=== PATIENT | female | born 1960 | race Caucasian/White ===

== ENCOUNTER 2021-08-08 15:08 | Emergency (ER) | payer BC, SELFPAY ==
[2021-08-08 15:15] VITALS: BP 131/99; PULSE 95; RESP 16; TEMP 36; O2SAT 99
--- NOTE | 2021-08-08 16:00 | CRLHL7_ITS ---
For Patients: As a result of the 21st Century Cures Act, medical imaging exams and procedure reports are released immediately into your electronic medical record. You may view this report before your referring provider. If you have questions, please contact your health care provider. INDICATION: EGD with biopsy 2 days prior with persistent pain and neck fullness. COMPARISON: None TECHNIQUE: : CT examination of the chest was performed without contrast. Thin axial sections were obtained from above the apices of the lungs to the lung bases. Please note that all CT scans at this facility use dose modulation, iterative reconstruction, and/or weight-based dosing when appropriate to reduce radiation dose to as low as reasonably achievable. FINDINGS: : HEART and MEDIASTINUM: The heart size is normal. There is no mediastinal or hilar adenopathy or mass. There is no pericardial effusion.No abnormal fluid in the mediastinum. There is no abnormal fluid in the region of the esophagus. There is no pneumatosis in the esophageal wall or indication of perforation. There is no pneumomediastinum. Please be aware that the neck is not studied on this examination regarding the clinical history LUNGS: The lungs show no focal consolidation or mass. The airways appear normal. A few nodules are noted the largest of which is at the left base on image 58 measuring 2.5 millimeters. Generally a nodule of this size only requires follow-up in high-risk individuals in which case a 12 month follow-up CT would be advised PLEURAL SPACES: There is no pleural effusion, pneumothorax or pleural based mass. VISUALIZED UPPER ABDOMEN: Cyst in the left lobe measuring 2 centimeters. Otherwise, the limited visualized upper abdominal structures appear normal. OSSEOUS STRUCTURES: Wedge compression deformity of T3 both superiorly and inferiorly. This does not appear to be acute though the vertebral body is sclerotic. The possibility that this same pathologic fracture should be considered. This would best be evaluated by follow up MRI at a clinically appropriate time TUBES and LINES: None. IMPRESSION: 1. There is no esophageal, paraesophageal or mediastinal findings that would indicate a complication associated with EGD. 2. Small nodule at the left lung base. Please review the comment regarding management recommendations. 3. Regarding the fullness in the neck, that area is not visualized on the exam. 4. Wedge compression deformity of T3 both superiorly and inferiorly. While this does not appear to be acute, the vertebral body is sclerotic raising the possibility that this is pathologic. A follow-up MRI should be considered in the nonacute care setting. Please note that all CT scans at this facility use dose modulation, iterative reconstruction, and/or weight-based dosing when appropriate to reduce radiation dose to as low as reasonably achievable. Dictated by Maicol Ge MD @ 08/08/2021 4:37:03 PM (Electronically Signed)
[2021-08-08 16:20] LABS: Basophils Absolute Auto 0.02 K/uL (0.00-0.30); Basophils Percent Auto 0.3 % (0.0-3.0); Eosinophils Absolute Auto 0.04 K/uL (0.00-0.50); Eosinophils Percent Auto 0.5 % (0.0-7.0); Hematocrit 42.3 % (33.0-51.0); Immature Granulocytes Abs Auto 0.02 K/uL (0.00-0.30); Lymphocytes Percent Auto 12.3 % (20-44); Mean Corpuscular HGB Conc 33 gm/dL (32-36); Mean Corpuscular Hemoglobin 30 pg (26-34); Mean Corpuscular Volume 91 fL (80-100); Monocytes Percent Auto 8.3 % (0.0-11.0); Neutrophils Percent Auto 78.3 % (42.0-72.0); Platelet Count* 317 K/uL (140-440); RDW Coefficient of Variation % 11.8 % (11.5-15.5); Red Blood Count 4.64 m/uL (4.00-5.20)
--- NOTE | 2021-08-08 16:43 | ED.CHESTPAIN ---
HPI - Chest Pain General Chief Complaint: Chest Pain Stated Complaint: Pain in chest, endoscopy 2 days ago Time Seen by Provider: 08/08/21 15:32 Source: patient, RN notes reviewed and old records reviewed History of Present Illness HPI narrative: 61-year-old woman presenting to the emergency department with concern of mid low sternal pain. Two days ago had an endoscopy for history of GERD. She notes that ENT was recommending it as well with suspicion of reflux following persistent left ear pain /problems. She does continues to take omeprazole on over the last couple of days of doubled up on it. Evidently some biopsies were taken during the procedure. She notes that received propofol and fentanyl. Apparently all went well. However on driving home started to have this pain in her mid low sternal area. She notes that when sipping coffee that is when it really hit than like a spasm. Water exacerbated this as well. Pain really escalated overnight generally to her chest and back. Did take some old oxycodone from 2011 and overall was better with some underlying heart burning and wondering whether her sphincter might be spasming I believe this is her concern. Was yesterday recommended to go to the emergency department but she deferred. Ate eggs and oatmeal today and pain is escalated again. She now feels a fullness in her neck is difficult disc coming on kind of hot feeling. Has not measured a fever. Is not actually short of breath. Denies pleuritic chest pain. Bowel movements have been darker but she would presume that this is secondary to Pepto-Bismol. Did test 4 days ago negative for COVID. Feels a little nauseated and just generally unwell. Further conversation appears that her primary concern is that she might have an infection somewhere. She notes that she takes Cimzia an immune suppressant for rheumatoid arthritis. She notes historically low white count and an elevated white count for her might be 11,000. is not having any abdominal pain otherwise. Does not Described any peripheral weakness numbness or tingling. Denies a history of cardiovascular disease. 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 Is anticipating CT chest as well as CBC to evaluate for potential infectious etiology. Related Data Home Medications Medication Instructions Recorded Confirmed acetaminophen 650 mg 650 mg PO Q8H PRN 08/08/21 08/08/21 tablet,extended release (Tylenol Arthritis Pain) atorvastatin 20 mg tablet 20 mg PO DAILY 08/08/21 08/08/21 calcium carbonate 600 mg calcium 600 mg PO DAILY 08/08/21 08/08/21 (1,500 mg) tablet (Calcium) certolizumab pegol 200 mg SUBCUT 08/08/21 cholecalciferol (vitamin D3) 50 50 mcg PO DAILY 08/08/21 08/08/21 mcg (2,000 unit) capsule multivitamin 1 tab PO DAILY 08/08/21 08/08/21 omeprazole 20 mg capsule,delayed 20 mg PO DAILY 08/08/21 08/08/21 release Previous Rx's Medication Instructions Recorded lidocaine HCl 2 % mucosal solution 15 ml MUCOUS MEMBRANE TID PRN #100 08/08/21 (Lidocaine Viscous) ml ondansetron HCl 4 mg tablet 4 mg PO Q4H PRN 4 Days #20 tab 08/08/21 sucralfate 100 mg/mL oral 10 ml PO QID #400 ml 08/08/21 suspension (Carafate) Allergies Allergy/AdvReac Type Severity Reaction Status Date / Time morphine Allergy Mild Vomiting Verified 08/08/21 15:59 Sulfa (Sulfonamide Allergy Mild blisters Verified 08/08/21 15:59 Antibiotics) around mouth Review of Systems Status of ROS Reports: 10 or more systems reviewed and unremarkable except as noted in History and below [facility] Medical History Anarthritic rheumatoid disease Diverticulitis Hyperlipidemia Osteoporosis Surgical History History of delivery Hx of breast reduction, elective Social History Smoking Status: Never smoker How often do you have a drink containing alcohol: monthly or less AUDIT-C Alcohol total score: 1 Non-prescribed substance use: denies use service: No Exam Narrative Exam Narrative: Pleasant. Calm. Appropriately nourished. Cranial nerves 2-12 intact Skin is warm and dry. No inflammatory changes appreciated. Extremities - No extremity swelling. Moving extremities without difficulty. well perfused peripherally. Equal radial pulses. Lungs are clear with equal expansion excursion. Chest without reproducible pain to palpation. I thought For a moment there might be some crepitus at the left neck/supraclavicular area. Not reproducible. Further, no masses or swellings are appreciated. CV - elevated rate. Regular rhythm. No MR G appreciated. Abdomen is soft and nontender. Full but no masses appreciated. oropharynx is moist. There is faint erythema over the uvula and of posterior soft palate consistent with recent procedure. Const Vital Signs, click to edit/add: Vital Signs - 24 hr 08/08/21 15:15 08/08/21 17:00 08/08/21 17:35 Temperature 96.8 F L Pulse Rate [Left Pulse Oximeter] 95 87 85 Respiratory Rate 16 14 16 Blood Pressure [Left Upper Arm] 131/99 H 122/77 125/79 Pulse Oximetry 99 94 95 Course Course Hospital Course: Was given a GI cocktail as well as Zofran. Nausea improved. Discomfort in her chest was essentially unchanged. Vital Signs Vital signs: Initial Vital Signs Temperature 96.8 F L 08/08/21 15:15 Temperature Source Temporal Artery Scan 08/08/21 15:15 Pulse Rate 95 08/08/21 15:15 Pulse Rhythm 08/08/21 15:15 Respiratory Rate 16 08/08/21 15:15 Blood Pressure 131/99 H 08/08/21 15:15 Blood Pressure Mean 109 08/08/21 15:15 Blood Pressure Position Sitting 08/08/21 15:15 Pulse Oximetry 99 08/08/21 15:15 Oxygen Delivery Method 08/08/21 15:15 Vital Signs Temperature 96.8 F L 08/08/21 15:15 Pulse Rate 95 08/08/21 15:15 Respiratory Rate 16 08/08/21 15:15 Blood Pressure 131/99 H 08/08/21 15:15 Pulse Oximetry 99 08/08/21 15:15 Temperature 96.8 F L 08/08/21 15:15 Pulse Rate 85 08/08/21 17:35 Respiratory Rate 16 08/08/21 17:35 Blood Pressure 125/79 08/08/21 17:35 Pulse Oximetry 95 08/08/21 17:35 MDM - Chest Pain Lab Data Attestation: I reviewed the patient's lab results. Lab results narrative: And discussed with Ms. Hopson. She notes that white count is elevated for her and appreciates normal CRP. I did review EKG. Sinus rhythm without Ischemic changes present. I reviewed CT images. I do not appreciate free air. Other findings in CT as noted below per Radiology. I did discuss with Ms. Hopson the findings of pulmonary nodules and the wedge compression at T3 with sclerotic vertebral body. [address] [address] Diagnostic Imaging Report Patient: Delores Hopson MR#: [id number] : 1960 Acct:[id number] Loc: ED Service Date: 08/08/[address]: Ordering Physician: Roddy Hou MD Date of Service: 08/08/21 Procedure(s): CT chest wo con Accession Number(s): [id number] cc: Roddy Hou MD~ For Patients:? As a result of the Cures Act, medical imaging exams and procedure reports are released immediately into your electronic medical record.? You may view this report before your referring provider.? If you have questions, please contact your health care provider. INDICATION: EGD with biopsy 2 days prior with persistent pain and neck fullness. COMPARISON: None TECHNIQUE: : CT examination of the chest was performed without contrast. Thin axial sections were obtained from above the apices of the lungs to the lung bases. Please note that all CT scans at this facility use dose modulation, iterative reconstruction, and/or weight-based dosing when appropriate to reduce radiation dose to as low as reasonably achievable. FINDINGS: : HEART and MEDIASTINUM: The heart size is normal. There is no mediastinal or hilar adenopathy or mass. There is no pericardial effusion.No abnormal fluid in the mediastinum. There is no abnormal fluid in the region of the esophagus. There is no pneumatosis in the esophageal wall or indication of perforation. There is no pneumomediastinum. Please be aware that the neck is not studied on this examination regarding the clinical history LUNGS: The lungs show no focal consolidation or mass. The airways appear normal. A few nodules are noted the largest of which is at the left base on image 58 measuring 2.5 millimeters. Generally a nodule of this size only requires follow-up in high-risk individuals in which case a 12 month follow-up CT would be advised PLEURAL SPACES: There is no pleural effusion, pneumothorax or pleural based mass. VISUALIZED UPPER ABDOMEN: Cyst in the left lobe measuring 2 centimeters. Otherwise, the limited visualized upper abdominal structures appear normal. OSSEOUS STRUCTURES: Wedge compression deformity of T3 both superiorly and inferiorly. This does not appear to be acute though the vertebral body is sclerotic. The possibility that this same pathologic fracture should be considered. This would best be evaluated by follow up MRI at a clinically appropriate time TUBES and LINES: None. IMPRESSION: 1. There is no esophageal, paraesophageal or mediastinal findings that would indicate a complication associated with EGD. 2. Small nodule at the left lung base. Please review the comment regarding management recommendations. 3. Regarding the fullness in the neck, that area is not visualized on the exam. 4. Wedge compression deformity of T3 both superiorly and inferiorly. While this does not appear to be acute, the vertebral body is sclerotic raising the possibility that this is pathologic. A follow-up MRI should be considered in the nonacute care setting. Please note that all CT scans at this facility use dose modulation, iterative reconstruction, and/or weight-based dosing when appropriate to reduce radiation dose to as low as reasonably achievable. Dictated by Maicol Ge MD @ 08/08/2021 4:37:03 PM (Electronically Signed) Given duration of symptoms and timing as well as lack of known cardiovascular disease, doubt this is cardiovascular/ischemic in origin. Suspect this is more related to postprocedural irritation/inflammation. After discussion with Ms. Hopson about symptom relief, settled on prescription of Carafate. Can add H2 clifton and she would like to have viscous lidocaine available though both acknowledged that it seemed ineffective today. This can be combined with liquid antacid in 1:1 See discharge as below. Labs: Lab Results 08/08/21 08/08/21 Range/Units 16:13 16:13 WBC 7.50 (4.50-11.00) K/uL RBC 4.64 (4.00-5.20) m/uL Hgb 14.0 (12.0-16.0) gm/dL Hct 42.3 (33.0-51.0) % MCV 91 (80-100) fL MCH 30 (26-34) pg MCHC 33 (32-36) gm/dL RDW Coeff of Charo 11.8 (11.5-15.5) % Plt Count 317 (140-440) K/uL Neut % (Auto) 78.3 H (42.0-72.0) % Lymph % (Auto) 12.3 L (20-44) % [place] % (Auto) 8.3 (0.0-11.0) % Eos % (Auto) 0.5 (0.0-7.0) % Baso % (Auto) 0.3 (0.0-3.0) % Neut # (Auto) 5.90 (1.7-7.0) K/uL Lymph # (Auto) 0.90 (0.90-2.90) K/uL [place] # (Auto) 0.60 (0.00-0.90) K/UL Eos # (Auto) 0.04 (0.00-0.50) K/uL Baso # (Auto) 0.02 (0.00-0.30) K/uL Abs Immat Gran (auto) 0.02 (0.00-0.30) K/uL C-Reactive Protein < 0.5 L (0.5-1.0) mg/dL Discharge Plan Discharge Clinical Impression: Other acute postprocedural pain, Atypical chest pain, Gastroesophageal reflux disease Patient Disposition: Home w/ Parent or Adult Condition: Improved Additional Instructions: Stay well hydrated. In the short term I would add a medicine like famotidine. Can certainly take liquid antacid /anti-gas if you find that helpful. This can be combined with viscous lidocaine essentially 1:1 Do follow-up the imaging with your primary care provider for comparisons. return for associated fever, marked increase in persistent pain/uncontrolled pain, increasing shortness of breath. Prescriptions: New ondansetron HCl 4 mg tablet 4 mg PO Q4H PRN (Reason: nausea) 4 Days Qty: 20 0RF sucralfate [Carafate] 100 mg/mL suspension 10 ml PO QID Qty: 400 1RF Rx Instructions: swish in mouth and swallow; use after food/drink lidocaine HCl [Lidocaine Viscous] 2 % solution 15 ml mucous membrane TID PRN (Reason: stomach/esophageal pain) Qty: 100 0RF Rx Instructions: mix 1:1 with liquid antacid No Action certolizumab pegol [Cimzia] 200 mg subcut 0RF omeprazole 20 mg capsule,delayed release(DR/EC) 20 mg PO DAILY 0RF atorvastatin 20 mg tablet 20 mg PO DAILY 0RF acetaminophen [Tylenol Arthritis Pain] 650 mg tablet extended release 650 mg PO Q8H PRN0RF calcium carbonate [Calcium 600] 600 mg calcium (1,500 mg) tablet 600 mg PO DAILY 0RF cholecalciferol (vitamin D3) 50 mcg (2,000 unit) capsule 50 mcg PO DAILY 0RF multivitamin Tablet 1 tab PO DAILY 0RF Stand Alone Forms: MyHealth Info Instructions
[2021-08-08 16:51] LABS: C Reactive Protein* < 0.5 mg/dL (0.5-1.0)
[2021-08-08 17:00] VITALS: BP 122/77; PULSE 87; RESP 14; O2SAT 94
[2021-08-08] MEDS: ONDANSETRON ODT 4 MG TAB PO (17:22)
[2021-08-08] MEDS: GI COCKTAIL (VISC LIDO/ANTACID) 30 ML PO (17:30)
[2021-08-08 17:35] VITALS: BP 125/79; PULSE 85; RESP 16; O2SAT 95
[2021-08-09 05:25] LABS: Slide Review Reflex No
== END 2021-08-08 18:31 ==
PROVIDERS: Emergency Provider Family Medicine; PCP Family Medicine
DX: R07.89 Other chest pain (principal); G89.18 Other acute postprocedural pain; K21.9 Gastro-esophageal reflux disease without esophagitis
CPT/HCPCS: 36415; 71250; 85025; 86140; 93005; 99283; 99285; A9270